=== PATIENT | female | born 1955 | race Hispanic/Latino ===

== ENCOUNTER 2023-04-10 19:45 | Emergency (ER) | payer OTHER, MEDICARE ==
[~2023-04-10] VITALS: Ht 152.4 cm; Wt 71.2 kg
[2023-04-10] MEDS ORDERED: CEFAZOLIN SODIUM 1 GM VIAL IM SCH (21:00)
[2023-04-10] MEDS ORDERED: KETOROLAC 30MG VIAL (30MG/ML) IM ONE (21:00)
[2023-04-10] MEDS ORDERED: CEPH500B PO (21:01)
[2023-04-10 22:30] VITALS: BP 173/80; PULSE 88; RESP 16; O2SAT 98
== END 2023-04-10 22:36 | disposition home or self-care (01) ==
LOC: EDH 19:45
DX: L03.032 Cellulitis of left toe (principal); E11.9 Type 2 diabetes mellitus without complications; E78.00 Pure hypercholesterolemia, unspecified; I10 Essential (primary) hypertension
CPT/HCPCS: 99284; 96372 ×2; J0690; J1885